=== PATIENT | male | born 1995 | race Caucasian/White ===

== ENCOUNTER 2019-02-27 04:08 | Emergency (ER) | payer SELFPAY ==
[~2019-02-27] VITALS: Ht 177.8 cm; Wt 68.7 kg
[2019-02-27 04:11] VITALS: BP 157/89
--- NOTE | 2019-02-27 04:25 | NUR ---
Pt c/o pain and discharge to penis x 5 days after sex with a girl 2 days prior. Denies pain with urination. Hx of STI's, states "I think I have another STD". Urine collected and sent to lab.
[2019-02-27] MEDS ORDERED: AZITHROMYCIN 500 MG TABLET PO ONE (04:30)
[2019-02-27] MEDS ORDERED: CEFTRIAXONE 250 MG IM ONE (04:30)
[2019-02-27] MEDS ORDERED: CEFTRIAXONE 250 MG ONE (05:08)
[2019-02-27] MEDS ORDERED: AZITHROMYCIN 250 MG TABLET ONE (05:08)
--- NOTE | 2019-02-27 05:15 | NUR ---
Pt medicated per MD orders, education provided. Pt denies allergies, will monitor for rxn, then d/c home.
[2019-02-27 05:32] LABS: MICROSCOPIC INDICATED
[2019-02-27 05:36] LABS: CULTURE INDICATED? YES
--- NOTE | 2019-02-27 05:37 | NUR ---
No s/sx of rxn noted, stable for discharge home, exitare reviewed, verbalizes understanding, ambulates w/ steady gait to front lobby.
== END 2019-02-27 05:49 | disposition home or self-care (01) ==
LOC: ED 05:48
DX: A64 Unspecified sexually transmitted disease (principal); F17.200 Nicotine dependence, unspecified, uncomplicated; R11.0 Nausea
CPT/HCPCS: 81001; 87086; 87491; 87591; 96372; 99283; J0696